=== PATIENT | female | born 1980 | race Caucasian/White ===

== ENCOUNTER 2020-04-14 01:48 | Emergency (ER) | payer OTHER ==
[~2020-04-14] VITALS: Ht 167.6 cm; Wt 72.6 kg
--- NOTE | 2020-04-14 02:10 | NUR ---
DR VARGAS AT BEDSIDE FOR MSE.
[2020-04-14] MEDS ORDERED: VANCOMYCIN IV 1,000 MG in IV DEXTROSE 5% 250 ML IV ONE (02:15)
[2020-04-14 02:49] LABS: BASOPHILS # (AUTO) 0.1 K/uL (0.0-8.0); BASOPHILS % (AUTO) 0.7 % (0.0-2.0); EOSINOPHILS # (AUTO) 0.2 K/uL (0.0-0.7); EOSINOPHILS % (AUTO) 2.4 % (0.0-7.0); HEMATOCRIT 35.2 % (31.2-41.9); HEMOGLOBIN 11.5 g/dL (10.9-14.3); LYMPHOCYTES # (AUTO) 3.3 K/uL (20.0-40.0); LYMPHOCYTES % (AUTO) 33.2 % (20.5-51.5); MEAN CORPUSCULAR HEMOGLOBIN 26.7 uug (24.7-32.8); MEAN CORPUSCULAR HGB CONC 33 g/dL (32.3-35.6); MEAN CORPUSCULAR VOLUME 81.6 fL (75.5-95.3); MONOCYTES # (AUTO) 0.7 K/uL (2.0-10.0); MONOCYTES % (AUTO) 6.8 % (0.0-11.0); NEUTROPHILS # (AUTO) 5.7 K/uL (1.8-8.9); NEUTROPHILS % (AUTO) 56.9 % (38.5-71.5); PLATELET COUNT (AUTO) 385 K/uL (179-408); RED BLOOD CELL COUNT(AUTO) 4.32 MIL/uL (3.63-4.92); WHITE BLOOD COUNT (AUTO) 9.9 K/uL (3.8-11.8)
[2020-04-14] MEDS ORDERED: SULFAMETH/TRIMETH 800/160 MG TABLET ONE (02:54)
[2020-04-14] MEDS ORDERED: CEFTRIAXONE 1 G VIAL ONE (02:54)
[2020-04-14] MEDS ORDERED: MUPIROCIN 2% OINT 22 GM TUBE ONE (02:55)
--- NOTE | 2020-04-14 02:55 | NUR ---
PT REFUSED FUTHER PIV INSERTIONS. RN TRIED 2X UNSUCCESFUL, AND PT STATES THAT SHE DOES NOT WANT ANY MORE STICKS. RISKS AND BENEFITS OF NOT GETTING IV ATB EXPLAINED, PT CONTINUED TO REFUSE. WOULD RATHER GO HOME "WITH A SCRIPT". MADE AWARE WITH NEW ORDERS.
[2020-04-14] MEDS ORDERED: SULFAMETH/TRIMETH 800/160 MG TABLET PO ONE (03:00)
[2020-04-14] MEDS ORDERED: MUPIROCIN 2% OINT 22 GM TUBE TP ONE (03:00)
[2020-04-14] MEDS ORDERED: CEFTRIAXONE 1 G VIAL IM ONE (03:00)
[2020-04-14 03:03] LABS: CREATININE 0.9 mg/dL (0.6-1.3); POTASSIUM 3.9 mmol/L (3.5-5.1)
[2020-04-14 03:08] LABS: BILIRUBIN,DIRECT 0.1 mg/dL (0.0-0.2); BILIRUBIN,TOTAL 0.4 mg/dL (0.2-1.0)
--- NOTE | 2020-04-14 03:53 | NUR ---
No adverse reaction from ATB administered. Wound care done as ordered. Patient discharged to home in stable condition. Written and verbal after care instructions given. Patient verbalizes understanding of instructions. Stressed follow up or return to ER for worsening s/s. Ambulated out of ER in steady gait.
[2020-04-14 03:54] VITALS: BP 135/80
== END 2020-04-14 03:55 | disposition home or self-care (01) ==
LOC: ER 01:51
DX: L03.116 Cellulitis of left lower limb (principal); L97.121 Non-pressure chronic ulcer of left thigh limited to breakdown of skin; L97.111 Non-pressure chronic ulcer of right thigh limited to breakdown of skin; S71.132S Puncture wound without foreign body, left thigh, sequela; S71.131S Puncture wound without foreign body, right thigh, sequela; X78.8XXS Intentional self-harm by other sharp object, sequela; E78.5 Hyperlipidemia, unspecified; Z59.0 Homelessness; Z86.19 Personal history of other infectious and parasitic diseases; F11.10 Opioid abuse, uncomplicated; F15.10 Other stimulant abuse, uncomplicated
CPT/HCPCS: 36415; 80048; 80076; 85025; 85730; 93971; 96372; 99284; J0696; A4217; A4663

== ENCOUNTER 2020-07-26 12:23 | Emergency (ER) | payer OTHER ==
[~2020-07-26] VITALS: Ht 165.1 cm; Wt 77.1 kg
[2020-07-26] MEDS ORDERED: SULF1TAB48 PO (12:28)
[2020-07-26] MEDS ORDERED: IV NORMAL SALINE 1000 ML BAG IV ONE (12:45)
[2020-07-26] MEDS ORDERED: VANCOMYCIN IV 1,000 MG in IV DEXTROSE 5% 250 ML IV ONE (12:45)
--- NOTE | 2020-07-26 12:46 | NUR ---
PT [facility] ROOM #1B. DR DELEON EVALUATED THE PT.
[2020-07-26] MEDS ORDERED: VANCOMYCIN IV 200 ML ONE (12:56)
[2020-07-26] MEDS ORDERED: diphenhydrAMINE 50 MG/1 ML VIAL IV ONE (13:30)
[2020-07-26] MEDS ORDERED: diphenhydrAMINE 50 MG/1 ML VIAL ONE (13:33)
[2020-07-26 13:53] LABS: BASOPHILS # (AUTO) 0.1 K/uL (0.0-8.0); BASOPHILS % (AUTO) 0.8 % (0.0-2.0); EOSINOPHILS # (AUTO) 0.2 K/uL (0.0-0.7); EOSINOPHILS % (AUTO) 2.5 % (0.0-7.0); HEMATOCRIT 36.3 % (31.2-41.9); LYMPHOCYTES # (AUTO) 2.2 K/uL (20.0-40.0); LYMPHOCYTES % (AUTO) 23.7 % (20.5-51.5); MEAN CORPUSCULAR HEMOGLOBIN 28.3 uug (24.7-32.8); MEAN CORPUSCULAR HGB CONC 33 g/dL (32.3-35.6); MEAN CORPUSCULAR VOLUME 85.4 fL (75.5-95.3); MONOCYTES # (AUTO) 0.7 K/uL (2.0-10.0); MONOCYTES % (AUTO) 7.5 % (0.0-11.0); NEUTROPHILS % (AUTO) 65.5 % (38.5-71.5); PLATELET COUNT (AUTO) 328 K/uL (179-408); RED BLOOD CELL COUNT(AUTO) 4.25 MIL/uL (3.63-4.92); WHITE BLOOD COUNT (AUTO) 9.2 K/uL (3.8-11.8)
[2020-07-26 14:02] LABS: CREATININE 0.7 mg/dL (0.6-1.3)
[2020-07-26 14:07] LABS: BILIRUBIN,DIRECT 0.1 mg/dL (0.0-0.2); BILIRUBIN,TOTAL 0.4 mg/dL (0.2-1.0); TOTAL PROTEIN, SERUM 7.3 g/dL (6.4-8.2)
[2020-07-26] MEDS ORDERED: IBUPROFEN 600 MG TABLET PO PRN (16:15)
--- NOTE | 2020-07-26 16:28 | NUR ---
PT DECIDED TO LEAVE HOSPITAL AMA. DR DELEON AND BIMAL LORENZO EXPLAINED ALL RISKS OF LEAVING HOSPITAL AMA TO THE PT. PT VERBALISED FULL UNDERSTANDING. PT SIGNED AMA FORM AND LEFT HOSPITAL WITH HER FRIEND. NO S/S OF ACUTE DISTRESS. GAIT IS STABLE. NO N/V, NO SOB, PT DENIES PAIN.
[2020-07-26 16:31] VITALS: BP 138/91
== END 2020-07-26 16:32 | disposition left against medical advice (07) ==
LOC: ER 12:23 → MEDSURG3 15:58 → UNDOADMIN 15:58 → UNDODISIN 16:00 → ER 16:32
DX: L03.213 Periorbital cellulitis (principal); Z59.0 Homelessness; Z86.19 Personal history of other infectious and parasitic diseases; E78.5 Hyperlipidemia, unspecified; R79.82 Elevated C-reactive protein (CRP); Z20.828 Contact with and (suspected) exposure to other viral communicable diseases
CPT/HCPCS: 36415; 70480; 80048; 80076; 83690; 85025; 86140; 87426; 96365; 96366; 96375; 99284; J1200; J3370; A4663; G0378; J7030